=== PATIENT | male | born 1960 | race Caucasian/White ===

== ENCOUNTER 2022-09-10 23:05 | Emergency (ER) | payer OTHER ==
[~2022-09-10] VITALS: Ht 182.9 cm; Wt 97.7 kg
[2022-09-10] MEDS ORDERED: MECLIZINE HCL 25 MG TAB PO ONE (23:30)
[2022-09-10] MEDS ORDERED: hydrALAZINE HCL 20 MG/ML VL IV ONE (23:45)
[2022-09-10 23:56] LABS: Basophils # (auto) 0.1 10 ^3/uL (0-0.2); Basophils % (auto) 0.9 % (0.0-2.0); Eosinophils # (auto) 0.2 10 ^3/uL (0-0.8); Eosinophils % (auto) 2.9 % (0.0-7.0); Hematocrit 41.4 % (41.0-53.0); Hemoglobin 14.3 g/dL (13.5-17.5); Lymphocytes % (auto) 14.4 % (10.0-50.0); Mean Corpuscular Hemoglobin 29.4 pg (28.0-32.0); Mean Corpuscular Hgb Conc. 34.6 g/dL (32.0-36.0); Mean Corpuscular Volume 84.9 fL (80.0-100.0); Monocytes # (auto) 0.5 10 ^3/uL (0-1.3); Monocytes % (auto) 6.6 % (0.0-12.0); Neutrophils # (auto) 5.5 10 ^3/uL (1.6-8.6); Neutrophils % (auto) 75.2 % (37.0-80.0); Red Blood Cells 4.88 10^6/uL (4.5-5.90); Red Cell Distribution Width 14.2 % (11.8-14.3); White Blood Cell 7.2 10^3/uL (4.4-10.8)
[2022-09-11] MEDS ORDERED: IOHEXOL 350 MG/ML 100ML IJ ONE
[2022-09-11 00:15] LABS: Albumin 3.7 g/dL (3.4-5.0); BUN/Creatinine Ratio 17.7 (10.0-20.0); Calcium 9.4 mg/dL (8.5-10.1); Potassium 3.9 mmol/L (3.5-5.1)
[2022-09-11 00:18] LABS: Bilirubin, Total 0.4 mg/dL (0.2-1.0); Total Protein 7.5 g/dL (6.4-8.2)
[2022-09-11] MEDS ORDERED: cloNIDine HCL 0.1 MG TAB PO ONE (02:00)
[2022-09-11 03:25] VITALS: BP 157/89
[2022-09-11] MEDS ORDERED: MECL1TAB31 PO (04:08)
== END 2022-09-11 03:39 | disposition home or self-care (01) ==
LOC: ER 23:05
DX: R42 Dizziness and giddiness (principal); R53.1 Weakness; I10 Essential (primary) hypertension; Z86.73 Personal history of transient ischemic attack (TIA), and cerebral infarction without residual deficits
CPT/HCPCS: 36415; 70450; 70496; 71045; 80053; 83690; 83880; 84484; 85025; 93005; 96374; 99285; J0360; Q9967